=== PATIENT | male | born 1970 | race Caucasian/White ===

== ENCOUNTER 2018-03-01 12:17 | Outpatient (CLI) | payer OTHER ==
--- NOTE | 2018-03-01 13:39 | XRAY Report ---
TWO VIEW CHEST: 03/01/2018 CLINICAL INDICATION: Cough. FINDINGS: Frontal and lateral views of the chest demonstrate a right lower lobe infiltrate. The cardiac silhouette is not enlarged. No effusion or pneumothorax is present. IMPRESSION: RIGHT LOWER LOBE INFILTRATE. TD: 03/01/2018 13:18
== END 2018-03-01 12:18 | disposition home or self-care (01) ==
LOC: DI 12:17
PROVIDERS: ATTEND Internal Medicine
DX: R91.8 Other nonspecific abnormal finding of lung field (principal)
CPT/HCPCS: 71046